=== PATIENT | female | born 1995 | race Caucasian/White ===

== ENCOUNTER 2017-08-09 07:44 | Emergency (ER) | payer OTHER ==
[~2017-08-09] VITALS: Ht 170.2 cm; Wt 66.0 kg
[2017-08-09 07:46] VITALS: BP 128/88; PULSE 98; RESP 18; TEMP 98.4; O2SAT 100
[2017-08-09] MEDS ORDERED: IBUP-1129 PO (07:57)
[2017-08-09] MEDS ORDERED: birthcontrol PO (07:57)
[2017-08-09] MEDS ORDERED: ROBA500T PO (07:59)
[2017-08-09] MEDS ORDERED: ORPHENADRINE INJ 60 MG/2 ML AMP IM ONE (08:00)
[2017-08-09] MEDS ORDERED: KETOROLAC TROMETHAMINE 60 MG/2 ML (IM) VIAL IM ONE (08:00)
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
== END 2017-08-09 08:29 | disposition home or self-care (01) ==
LOC: NEPD 07:44
DX: S16.1XXA Strain of muscle, fascia and tendon at neck level, initial encounter (principal); S39.012A Strain of muscle, fascia and tendon of lower back, initial encounter; V89.2XXA Person injured in unspecified motor-vehicle accident, traffic, initial encounter
CPT/HCPCS: 96372; 99283; J1885; J2360